=== PATIENT | female | born 1970 | race Caucasian/White ===

== ENCOUNTER → 2017-01-31 | Outpatient (CLI) | payer OTHER ==
[~2017-01-31] MED LIST: GEODON80 MG; KLONOPIN 1MG1 MG; LAMICTAL ODT50 MG; NORCO 325 MG-51 TAB PO; PRISTIQ100 MG
== END ==
LOC: BHSO 08:52
DX: F41.1 Generalized anxiety disorder (principal)
CPT/HCPCS: G0463

== ENCOUNTER 2017-07-22 22:10 | Emergency (ER) | payer OTHER ==
[~2017-07-22] VITALS: Ht 162.6 cm; Wt 103.7 kg
[~2017-07-22 22:10] MED LIST changes: -KLONOPIN 1MG1 MG; +KLONOPIN 1MG1 MG PO; -LAMICTAL ODT50 MG; +LAMICTAL ODT50 MG PO; -PRISTIQ100 MG; +PRISTIQ100 MG PO
[2017-07-22 22:12] VITALS: TEMP 98.1
[2017-07-22] MEDS ORDERED: PREDNISONE10 MG PO (23:25)
[2017-07-22] MEDS ORDERED: EPIPEN 2-PAK1 MG/ML IM (23:25)
[2017-07-23 00:17] VITALS: BP 139/74; PULSE 78
== END 2017-07-23 00:15 | disposition home or self-care (01) ==
LOC: COL.ER 22:10
DX: T78.3XXA Angioneurotic edema, initial encounter (principal); T78.40XA Allergy, unspecified, initial encounter; Z87.2 Personal history of diseases of the skin and subcutaneous tissue
CPT/HCPCS: J1200; J2930; J7030

== ENCOUNTER → 2017-07-31 | Outpatient (CLI) | payer OTHER ==
[~2017-07-31] MED LIST changes: +EPIPEN 2-PAK1 MG/ML IM; +PREDNISONE10 MG PO
== END ==
LOC: BHSO 13:02
DX: F31.81 Bipolar II disorder (principal)

== ENCOUNTER → 2018-04-19 | Outpatient (CLI) | payer OTHER | LOC: BHSO 08:55 | DX: F31.81 Bipolar II disorder (principal) | CPT/HCPCS: G0463 ==

== ENCOUNTER → 2019-04-15 | Outpatient (CLI) | payer OTHER | LOC: BHSO 08:21 | DX: F31.81 Bipolar II disorder (principal) | CPT/HCPCS: G0463 ==

== ENCOUNTER → 2019-11-18 | Outpatient (CLI) | payer OTHER | LOC: BHSO 09:01 | DX: F31.81 Bipolar II disorder (principal) | CPT/HCPCS: G0463 ==

== ENCOUNTER → 2019-11-21 | Outpatient (CLI) | payer OTHER | LOC: BHSO 09:48 | DX: F31.81 Bipolar II disorder (principal) ==

== ENCOUNTER → 2019-11-28 | Outpatient (CLI) | payer OTHER | LOC: BHSO 09:11 | DX: F41.0 Panic disorder [episodic paroxysmal anxiety] (principal) | CPT/HCPCS: G0463 ==

== ENCOUNTER → 2019-11-29 | Outpatient (CLI) | payer OTHER | LOC: BHSO 10:50 | DX: F31.81 Bipolar II disorder (principal) ==

== ENCOUNTER → 2019-12-16 | Outpatient (CLI) | payer OTHER | LOC: BHSO 10:48 | DX: F31.81 Bipolar II disorder (principal) ==